=== PATIENT | male | born 1945 | race Caucasian/White ===

== ENCOUNTER → 2023-08-19 12:38 | Outpatient (REF) | payer OTHER, SELFPAY | LOC: RAD 12:38 | PROVIDERS: ATTENDING PHYSICIAN Internal Medicine | DX: M79.606 Pain in leg, unspecified (principal) | CPT/HCPCS: 93922 ==

== ENCOUNTER → 2024-01-05 07:15 | Day surgery (SDC) | payer OTHER, SELFPAY | LOC: GI 07:15 | PROVIDERS: ATTENDING PHYSICIAN Internal Medicine | DX: Z12.11 Encounter for screening for malignant neoplasm of colon (principal); K64.8 Other hemorrhoids; K57.30 Diverticulosis of large intestine without perforation or abscess without bleeding; K62.1 Rectal polyp; Z86.010 Personal history of colon polyps | CPT/HCPCS: 45385; 88305 ==

== ENCOUNTER 2024-03-13 06:41 | Emergency (ER) | payer OTHER, SELFPAY ==
[2024-03-13 06:44] VITALS: BP 162/92
--- NOTE | 2024-03-13 08:04 | ED.GENMED ---
History of Present Illness
General
Chief Complaint: Musculo-Skeletal Complaint
Source: patient
Time Seen by Provider: 03/13/24 07:53
History of Present Illness
History of Present Illness:
78yoM with a history of hypertension, hyperlipidemia, pacemaker, MORTEZA, and gout presenting with his for evaluation of right rib pain. He states he always has a mild pain in his right lower lateral rib area. He was sitting on the couch last night
around 9pm when he had an abrupt onset of severe 20/10 pain. He tried heat, ice, and Motrin with some improvement. Pain is worse if he lays flat and improves with sitting up. He is able to reproduce the pain with palpation. He had to sleep on the
recliner last night due to his pain. His pain is currently improved and is now a 4/10 in severity. He states it feels like a 'lump without a lump' in between his ribs. He denies any pleuritic pain, shortness of breath, chest pain, abdominal pain,
fevers, vomiting, rashes, trauma. Of note, his urine appeared dark yellow earlier this week but this has since resolved. He has no urinary symptoms currently.
Past History
Past History
ED Past Medical History: None
ED Past Surgical History: None
Social History
Tobacco: Non-smoker
Alcohol: None
Drug: None
Personal:
Living: with family
Phy Exam
General Physical Exam
General Presentation: well appearing and no apparent distress
General age: appears stated age
General Skin: warm and dry
General Habitus: normal
General Mental: alert
General Hydration: appears well hydrated
ENT Exam
ENT Exam: normocephalic
Cardiovascular Exam
Cardiovascular Exam: regular rate/rhythm
Pulmonary Exam
Pulmonary Exam: lungs clear, no respiratory distress, no crackles, no wheezing and other (+Focal tenderness to the R lateral lower ribcage. No skin changes or crepitus. )
Gastrointestinal Exam
Gastrointestinal Exam: non tender, soft, non distended and other (Abdomen soft, non-tender. No abdominal tenderness. Negative Rand's sign. )
Creswell Coma Scale
Eye Opening: Spontaneous
Verbal Response: Oriented
Motor Response: Obeys Commands
GCS Total Score: 15
Skin Exam
Skin Exam: normal color and warm/dry
Psychiatric Exam
Psychiatric Exam: normal mood/affect
Course
Orders/Labs/Results
Orders:
Orders
03/13/24 08:03
CT Abd/pel Without Iv Or Oral Urgent
Comment:
Reason For Exam: R flank pain/R lower rib pain
CR Ribs-right 3 Vw W/pa Chest* Urgent
Comment:
Reason For Exam: R lower rib pain
03/13/24 08:07
Complete Blood Count/With Diff Urgent
Comprehensive Metabolic Panel Urgent
Lipase Urgent
03/13/24 08:10
Urinalysis Reflex To Culture Urgent
Date Specimen was Collected: 03/13/24
Time Specimen was Collected: 08:08
03/13/24 09:55
Lidocaine [Lidocaine 4% Patch] 1 patch TOPICAL ONCE ONE
Apply Lidocaine patch(s) to:: R ribcage
Abnormal Lab Results
03/13/24
08:07
RBC 4.65 L 10^6/uL
(4.70-6.10)
BUN 27 H mg/dl
(9-20)
Glucose 118 H mg/dl
(70-99)
Total Protein 6.2 L g/dl
(6.3-8.2)
Lipase 434 H U/L
(23-300)
03/13/24 08:07
03/13/24 08:07
Vital Signs
Initial and Last Documented VS:
Initial Vital Signs
Temp Pulse Resp BP Pulse Ox
97.7 F 64 16 162/92 100
10/26/24 06:44 03/13/24 06:44 03/13/24 06:44 03/13/24 06:44 03/13/24 06:44
Last Documented Vital Signs
Temp Pulse Resp BP Pulse Ox
97.7 F 60 16 151/76 100
03/13/24 06:44 03/13/24 08:56 03/13/24 08:56 03/13/24 08:56 03/13/24 08:56
MDM/Problems Addressed
Differential Diagnosis Includes:
78yoM here with R lateral rib pain. He reports mild pain in area chronically which acutely worsened last night. No trauma. No pleuritic pain or SOB. VSS and oxygen saturation 100% on room air. There is focal tenderness to the ribcage on exam without
skin changes. Lungs CTA. Abdomen soft and non-tender. Differential diagnosis includes but is not limited to: musculoskeletal, rib fracture, early shingles, kidney stone, less likely biliary colic
Initial ED plan: Check abdominal labs, UA, rib series x-rays, and CT abdomen. He declines analgesics.
*Critical Care Note
Total Time (30-74mins, 75-104mins- exclusive of procedures): Not Applicable
Update Note
Update Note:
Labs overall unremarkable other than a mildly elevated lipase of 434. UA bland without signs of infection or microscopic hematuria. Rib series x-rays are normal. CT abdomen is negative for acute findings. Pancreas normal on imaging.
Cholelithiasis present without imaging findings suggestive of cholecystitis. On reassessment, pain has improved and is currently mild. No indication for admission at this time. Will trial topical lidocaine patch for pain. Supportive care
discussed. Advised follow-up with PCP and ED return precautions discussed. He expressed understanding and is agreeable to plan. He was discharged in stable condition.
ED Attending Note
-
Portions of this chart may have been created with voice recognition software.� Occasional wrong word or��sound alike� substitutions may have occurred due to the inherent limitations of voice recognition software.
Discharge Plan
Departure
Patient Disposition: Home (Routine Discharge)
Date of Disposition: 03/13/24
Time of Disposition: 09:55
Patient with high blood pressure during this ER visit?: Yes
Discharge Problem:
Rib pain on right side
Instructions: Flank Pain (DC)
Prescriptions:
No Action
tamsulosin 0.4 mg Capsule
0.4 mg PO DAILY
[id number]-wogsorz-lutein 0.4-162-18 mg Tablet
1 tab PO DAILY
lisinopril 10 mg Tablet
10 mg PO DAILY
atorvastatin 40 mg Tablet
40 mg PO QPM 30 Days Qty: 30 3RF
metoprolol succinate 50 mg Tablet Extended Release 24 Hr
50 mg PO DAILY 30 Days Qty: 30 3RF
aspirin 81 mg Tablet,Delayed Release (Dr/Ec)
81 mg PO DAILY 30 Days Qty: 30 0RF
Rx Instructions:
OTC medication. 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
Referrals:
Darin Maldonado MD [Family Provider] -
Activity Restrictions/Additional Instructions:
Apply heat to affected area. Use lidocaine patches daily (12 hours on, 12 hours off). Take Tylenol 650mg every 6 hours as needed for pain.
Please follow-up with your family doctor on Friday. Return to the ER with any new or worsening symptoms.
Interventions
Interventions:
*Risk Screen - Suicide Last Done: 03/13/24 06:47
*General Assessment Last Done: 03/13/24 07:58
*Neglect/Abuse Screening Last Done: 03/13/24 06:47
ED- Fall Risk Assessment Last Done: 03/13/24 09:43
*ED COVID-19 Vaccine History Last Done: 03/13/24 06:50
ED-Musculoskeletal Assessment Last Done: 03/13/24 07:39
Discharge Date and Time
Discharge Date/Time: 03/13/24 10:02
Print Language: ARMENIAN
[2024-03-13 08:22] LABS: % Basophils 0.4 % (0-2); % Eosinophils 3.3 % (0-6); % Immature Granulocytes 0.4 % (0-0.5); % Lymphocytes 25.9 % (20.5-51.1); % Monocytes 7.7 % (1.7-9.3); % Neutrophils 62.3 % (42.2-75.2); Absolute Eosinophils 0.3 10^3/uL (0-0.7); Absolute Lymphocytes 2.1 10^3/uL (1.2-3.4); Absolute Monocytes 0.6 10^3/uL (0.1-0.6); Absolute Neutrophils 5.1 10^3/uL (1.4-6.5); Hematocrit 40.3 % (39.0-52.0); Hemoglobin 14.2 g/dL (13.0-18.0); Mean Corp Hgb Conc. 35.2 g/dL (33.0-37.0); Mean Corpuscular Hgb 30.5 pg (27.0-31.0); Mean Corpuscular Volume 86.7 fL (80.0-94.0); Mean Platelet Volume 10.1 fL (7.4-10.4); Nucleated Red Blood Cells % 0 % (-); Platelet Count 168 10^3/uL (130-400); Red Blood Cell Count 4.65 10^6/uL (4.70-6.10); Red Cell Dist. Width 13.2 % (11.5-14.5); White Blood Cell Count 8.1 10^3/uL (4.8-10.8)
[2024-03-13 08:25] LABS: Urine Albumin Negative (Neg - Trace); Urine Bilirubin Negative (Negative); Urine Character Clear (Clear); Urine Color Yellow; Urine Glucose Negative (Negative); Urine Ketone Negative (Negative); Urine Leukocyte Negative (Negative); Urine Nitrite Negative (Negative); Urine Occult Blood Negative (Negative); Urine Specific Gravity 1.025 (<1.030); Urine Urobilinogen Negative (Neg - 1+)
[2024-03-13 08:56] VITALS: BP 151/76
[2024-03-13 09:18] LABS: ALT (SGPT) 38 U/L (0-50); AST (SGOT) 27 U/L (17-59); Albumin 3.8 g/dl (3.5-5.0); Alkaline Phosphatase 50 U/L (38-126); Blood Urea Nitrogen 27 mg/dl (9-20); Calcium 8.8 mg/dl (8.4-10.2); Carbon Dioxide 27 mmol/L (22-30); Chloride 107 mmol/L (98-107); Glucose 118 mg/dl (70-99); Lipase 434 U/L (23-300); Sodium 143 mmol/L (135-145); Total Bilirubin 0.8 mg/dl (0.2-1.3); Total Protein 6.2 g/dl (6.3-8.2); eGFR > 60.00
[2024-03-13] MEDS: LIDOCAINE 4% PATCH 1 PATCH TOPICAL (09:57)
[2024-03-13 10:01] VITALS: BP 149/78
== END 2024-03-13 10:02 | disposition home or self-care (01) ==
LOC: EMR 06:41
PROVIDERS: Physician Assistant; EMERGENCY PHYSICIAN Emergency Medicine; FAMILY PHYSICIAN Internal Medicine
DX: R07.81 Pleurodynia (principal); I10 Essential (primary) hypertension; K80.20 Calculus of gallbladder without cholecystitis without obstruction; E78.5 Hyperlipidemia, unspecified; G47.33 Obstructive sleep apnea (adult) (pediatric); M10.9 Gout, unspecified; Z95.0 Presence of cardiac pacemaker; Z79.82 Long term (current) use of aspirin
CPT/HCPCS: 99284; 71101; 74176; 80053; 81003; 83690; 85025